=== PATIENT | male | born 1995 | race Caucasian/White ===

== ENCOUNTER → 2021-02-25 | Outpatient (REF) | payer OTHER ==
[2021-02-25 14:40] LABS: SEMEN APPEARANCE OPAQUE (OPAQUE)
[2021-02-25 14:41] LABS: SEMEN VISCOSITY LIQUID (LIQUID); SPERM CONCENTRATION 7.5 M/ml (>=15.0); WBC CONCENTRATION >1 M/ml (<=1 M/ml)
== END ==
LOC: M LAB REF 14:21
PROVIDERS: ATTEND Specialist
DX: N46.9 Male infertility, unspecified (principal)

== ENCOUNTER → 2025-01-20 | Outpatient (CLI) | payer OTHER ==
[~2025-01-20] MED LIST: CIPR250T3 PO; KETO-204 PO; METR-265 PO
== END ==
LOC: M RAD 13:26
PROVIDERS: ATTEND Surgery
DX: Q43.0 Meckel's diverticulum (displaced) (hypertrophic) (principal)
CPT/HCPCS: 78290; A9512

== ENCOUNTER → 2025-02-16 | Outpatient (CLI) | payer OTHER ==
[~2025-02-16] MED LIST changes: +GADOXETATE DISODIUM 2.5 MMOL/10 ML VIAL ONE
== END ==
LOC: M PLAIMG 08:15
PROVIDERS: ATTEND Surgery
DX: Q43.0 Meckel's diverticulum (displaced) (hypertrophic) (principal)
CPT/HCPCS: 74176; A9581